=== PATIENT | female | born 1995 | race American Indian/Alaskan Native ===

== ENCOUNTER 2018-08-15 22:13 | Outpatient (CLI) | payer MEDICAID ==
[2018-08-15] MEDS ORDERED: LACTATED RINGERS 1,000 ML IV ONE (22:23)
[2018-08-15] MEDS ORDERED: TYLENOL PO ONE (23:02)
[2018-08-15] MEDS ORDERED: TYLENOL ONE (23:10)
[2018-08-15 23:57] LABS: Bacteria,Urine 2+ /HPF (Negative); Bilirubin,Urine NEG (Negative); Blood,Urine NEG (Negative); Color,Urine Yellow (Yellow); Mucus,Urine FEW /HPF; Protein,Urine <15 mg/dL mg/dL (Negative); Urobilinogen,Urine < 2.0 mg/dL (<2.0)
--- NOTE | 2018-08-15 23:57 | Ultrasound Report ---
PROCEDURE: US OB LIMITED TECHNIQUE: Real-time limited sonographic examination was performed for evaluation of well-bein g for each fetus with image documentation (1 or more fetuses). HISTORY: decreased movment COMPARISONS: None . FINDINGS: There is a single fetus in a vertex presentation. heart rate 1 55 bpm. The placenta is along th e posterior uterus. Amniotic fluid volume 12.3 cm. No further measurements are obtained. IMPRESSION: Single fetus vertex presentation. Amniotic fluid volume 12.3 cm. This document is electronically signed by Angella Kay DO., Aug 15 2018 11:55:22 PM ET
--- NOTE | 2018-08-15 23:58 | Ultrasound Report ---
PROCEDURE: US OB BPP WO NON-STRESS TECHNIQUE: Sonographic evaluation for breathing, movement, tone, and amniotic flui d volume was performed. HISTORY: decreased movement COMPARISONS: None . FINDINGS: FETUS Amniotic fluid volume Normal-score 2. At least one vertical pocket >2 cm or more in vertical axis . breathing: Normal-score 2 . movement: Normal-score 2 . tone: Normal-score 2 . Score: 8 of 8 . IMPRESSION: Normal biophysical profile . This document is electronically signed by Angella Kay DO., Aug 15 2018 11:55:55 PM ET
[2018-08-16] MEDS ORDERED: ROCEPHIN/NS 1 GM/50 ML 1 GM/50 ML BAG IV ONE (00:06)
[2018-08-16 00:35] VITALS: BP 114/77
== END 2018-08-16 01:05 | disposition home or self-care (01) ==
LOC: TRG 22:13
PROVIDERS: ATTEND Obstetrics & Gynecology
DX: O36.8130 Decreased fetal movements, third trimester, not applicable or unspecified (principal); O47.03 False labor before 37 completed weeks of gestation, third trimester; O26.893 Other specified pregnancy related conditions, third trimester; R10.9 Unspecified abdominal pain; Z3A.28 28 weeks gestation of pregnancy
CPT/HCPCS: 59025; 76815; 76819; 81001; 87086; 96360; 96365; J0696; J7120

== ENCOUNTER 2018-10-15 16:47 | Outpatient (CLI) | payer MEDICAID ==
[2018-10-15] MEDS ORDERED: LACTATED RINGERS 500 ML IV ONE (16:55)
[2018-10-15 17:14] VITALS: BP 116/81
[2018-10-15 17:25] LABS: Bacteria,Urine 4+ /HPF (Negative); Bilirubin,Urine NEG (Negative); Blood,Urine MOD (Negative); Color,Urine Yellow (Yellow); Mucus,Urine FEW /HPF; Urobilinogen,Urine < 2.0 mg/dL (<2.0)
== END 2018-10-15 18:12 | disposition home or self-care (01) ==
LOC: TRG 16:47
PROVIDERS: ATTEND Obstetrics & Gynecology
DX: O47.03 False labor before 37 completed weeks of gestation, third trimester (principal); Z3A.37 37 weeks gestation of pregnancy
CPT/HCPCS: 59025; 81001; 87086

== ENCOUNTER 2018-10-31 06:15 | Inpatient (IN) | payer MEDICAID ==
--- NOTE | 2018-10-31 10:15 | History and Physical Report ---
History of Present Illness Date of examination: 10/31/18 Date of admission: 10/31/18 09:38 History of present illness: Patient presented to labor and delivery with complaints of regular contractions. The patient patient's cervix changed from 3 cm TO 5 CM. MINUTE MANAGEMENT OF ACTIVE LABOR. Menstrual History Regularity: regular Duration: 4-5 LMP: 01/26/2018 LMP reliability: definite LMP character: normal test type: urine test Date: 05/18/2018 BC at conception: other EDC Calculations LMP: 11/02/2018 EDC Confirmation: 11/02/2018 Past History : 1 Term Births: 0 Premature Births: 0 Living Children: 0 Para: 0 Mult. Births: 0 Prev : 0 Aborta: 0 Elect. Ab: 0 Spont. Ab: 0 Ectopics: 0 Past Medical History: Negative Past Medical History Past Surgical History: Negative Past Surgical History Social History: Marital Status: Single Children: 0 Occupation: [employer] Risk Factors: Smoked Tobacco Use: Current every day smoker Cigars: Yes -- 1 per week Year started: 2017 Counseled to quit/cut down: yes Drug use: no HIV high-risk behavior: low risk Alcohol use: no Dietary Counseling: pn yes Past Medical History Surgery (Non-roofer gypsum): Negative Past Surgical History Abnormal PAP: negative Uterine Anomaly: negative Social Hx: Marital Status: Single Children: 0 Occupation: [employer] Infection History Hx of STD: none HIV Risk Eval: low risk Hepatitis B Risk Eval: low risk Personal hx. of genital herpes: no Genetic History Congenital Heart Defect: Mom: no Dad: no [place] Disease: Mom: no Dad: no Thalassemia Mom: no Dad: no Neural Tube Defect Mom: no Dad: no Down's Syndrome Mom: no Dad: no Lloyd-Sachs Mom: no Dad: no Sickle Cell Disease/Trait Mom: no Dad: no Hemophilia Mom: no Dad: no Muscular Dystrophy Mom: no Dad: no Cystic Fibrosis Mom: no Dad: no [place] Chorea Mom: no Dad: no Mental Retardation Mom: no Dad: no Fragile X Mom: no Dad: no Other Genetic/Chromosomal Disorder Mom: no Dad: no Child w/other defect Mom: no Dad: no Enviromental Exposures Xray Exposure: no Medication, drug, or alcohol use since LMP: no Chemical/Other Exposure: no Exposure to Cat Liter: no Active Medications (reviewed today): VITAMIN PLUS LOW IRON 27-1 MG ORAL TABLET ( VIT-FE FUMARATE-FA) 1 po q day as directed Current Allergies (reviewed today): No known allergies Laboratory Results Date/Time Past History - Obstetrical History : 1 Medications and Allergies Allergies Allergy/AdvReac Type Severity Reaction Status Date / Time No Known Allergies Allergy Verified 08/15/18 22:39 Home Medications Medication Instructions Recorded Confirmed Last Taken Type Vit-Fe Fumar-FA [ 1 tab PO QDAY 08/15/18 11/01/18 08/14/18 History Vitamin] Ibuprofen [Motrin 800 MG tab] 800 mg PO TID PRN #30 tablet 11/01/18 Unknown Rx Lidocain2.5%/Prilocai2.5% [Emla] 5 gm TP PRN #1 tube 11/01/18 Unknown Rx Docusate Sodium [Colace] 100 mg PO BID PRN #60 capsule 11/02/18 Unknown Rx Ferrous Sulfate [Feosol 325 MG tab] 325 mg PO BID #60 tablet 11/02/18 Unknown Rx - Vital Signs Vital signs: Vital Signs Pulse BP 116 H 109/66 10/31/18 07:10 10/31/18 07:10 Temp Pulse Resp BP Pulse Ox 114 H 127/68 10/31/18 09:41 10/31/18 09:41 - Physical Exam Breasts: Positive: deferred Cardiovascular: Regular rate Abdomen: Positive: normal appearance, soft Genitourinary (Female): Positive: perineal/vulvar lesions (small condyloma was seen around the fourchette) Vulva: both: condyloma Vagina: Positive: normal moisture Anus/Rectum: Positive: normal perianal skin Extremities: Positive: edema - Obstetrical FHR: category 1 Uterine Contraction Pattern: Regular Uterine Tone Measurement Phase: Resting Results Result Diagrams: 11/01/18 08:17 All other labs normal. Assessment and Plan - Patient Problems (1) Active labor at term Status: Acute Plan to address problem: We will admit and follow routine labor and delivery protocol. (2) Condyloma Status: Acute
[2018-10-31 10:35] LABS: Basophils % (Auto) 0.2 % (0.0-1.8); Hematocrit 38.1 % (30.3-42.9); Hemoglobin 12.3 gm/dl (10.1-14.3); Lymphocytes # (Auto) 0.8 K/mm3 (1.2-5.4); Lymphocytes % (Auto) 5.7 % (13.4-35.0); Mean Corpuscular HGB Conc 32 % (30-34); Mean Corpuscular Volume 80 fl (79-97); Monocytes # (Auto) 0.7 K/mm3 (0.0-0.8); Monocytes % (Auto) 4.5 % (0.0-7.3); Platelet Count 148 K/mm3 (140-440); Red Blood Count 4.79 M/mm3 (3.65-5.03); Red Cell Distribution Width 17.7 % (13.2-15.2)
[2018-10-31] MEDS ORDERED: LACTATED RINGERS 1,000 ML IV SCH ×2 (12:00→12:02)
[2018-10-31] MEDS ORDERED: PITOCin/NS 20 UNIT/1000ML DRIP 20 UNITS/1,000 ML BAG IV SCH (12:02)
[2018-10-31] MEDS ORDERED: BRETHINE IVP PRN (12:02)
[2018-10-31] MEDS ORDERED: PHENERGAN PO PRN ×2 (12:02→22:14)
[2018-10-31] MEDS ORDERED: STADOL IV PRN (12:02)
[2018-10-31] MEDS ORDERED: BRETHINE SUB-Q PRN (12:02)
[2018-10-31] MEDS ORDERED: ZOFRAN ONE (12:08)
[2018-10-31] MEDS ORDERED: ZOFRAN IV PRN (12:13)
[2018-10-31] MEDS ORDERED: XYLOCAINE 2% INFILTRATI ONE (13:00)
[2018-10-31] MEDS ORDERED: NARCAN 2 MG/2 ML IV PRN (13:40)
[2018-10-31] MEDS ORDERED: SUBLIMAZE ONE ×2 (13:42→17:46)
[2018-10-31] MEDS ORDERED: MARCAINE 0.25% INFILTRATI ONE (13:42)
[2018-10-31] MEDS ORDERED: fentaNYL-BUPIV 2 MCG/ML-0.125% 200 MCG/100 ML BAG EPIDURAL SCH (14:00)
--- NOTE | 2018-10-31 14:01 | Anesthesia Consultation ---
Anesthesia Consult and Med Hx Date of service: 10/31/18 - Airway Anesthetic Teeth Evaluation: Good ROM Head & Neck: Adequate Mental/Hyoid Distance: Adequate Mallampati Class: Class II Intubation Access Assessment: Good - Pulmonary Exam CTA: Yes - Cardiac Exam Cardiac Exam: RRR - Pre-Operative Health Status ASA Pre-Surgery Classification: ASA2, Emergency Proposed Anesthetic Plan: Epidural - Pulmonary Hx Asthma: No - Cardiovascular System Hx Hypertension: No - Central Nervous System Hx Seizures: No Hx Psychiatric Problems: No - Endocrine Hx Renal Disease: No Hx Hypothyroidism: No Hx Hyperthyroidism: No - Hematic Hx Anemia: Yes Hx Sickle Cell Disease: No - Other Systems Hx Alcohol Use: No
[2018-10-31] MEDS ORDERED: MINERAL OIL ONE ×4 (16:00→17:13)
[2018-10-31] MEDS ORDERED: MINERAL OIL PO PRN (17:14)
[2018-10-31] MEDS ORDERED: VERSED IV ONE (17:46)
[2018-10-31] MEDS ORDERED: DIPRIVAN 10 MG/ML IV ONE (17:46)
[2018-10-31] MEDS ORDERED: CYTOTEC ONE (17:59)
--- NOTE | 2018-10-31 18:35 | Procedure Note ---
OB Delivery Note - Delivery Date of Delivery: 10/31/18 Surgeon: KATELYN DONG Estimated blood loss: 1000cc - Vaginal Delivery presentation: vertex Delivery position: OA Intrapartum events: hemorrhage, uterine inversion Delivery induction: none Delivery monitor: external FHT, external uterine Route of delivery: Delivery placenta: spontaneous Episiotomy: none Delivery laceration: 1st degree Anesthesia: intravenous, epidural Delivery comments: Patient's placenta appeared to be spontaneously detach and approximately 10-12 minutes after delivery of the infant. The patient push with the placenta coming through the cervix and then the patient started experiencing severe pain on inspection of the placenta as a computer services was noted still attached to the fundus and patient had inverted uterus. I successfully detach the uterus from the fundus. Initially tried to correct the inversion but the patient was not adequately anesthetized. Anesthesia was called the patient was given anesthetic. I successfully manually corrected inversion replace and fundus to his normal position. Patient was given Pitocin and 800 g of Cytotec per rectum. Fundus became firm and her bleeding decreased significantly. The patient is being watched in labor and delivery to insure no hemorrhage - Infant B Infant Gender: Male
[2018-10-31] MEDS ORDERED: CYTOTEC PR ONE (19:00)
[2018-10-31 19:07] LABS: Hematocrit 31.2 % (30.3-42.9); Hemoglobin 10.2 gm/dl (10.1-14.3)
--- NOTE | 2018-10-31 19:56 | Anesthesia Day of Surgery ---
Anesthesia Day of Surgery - Day of Surgery Patient Examined: Yes Patient H&P Reviewed: Yes Patient is NPO: Yes
--- NOTE | 2018-10-31 20:23 | Post Anesthesia Evaluation ---
- Post Anesthesia Evaluation Patient Participated: Yes Airway Patent: Yes Stable Respiratory Function: Yes Nausea/Vomiting: No Temp > 96.8F: Yes Pain Manageable: Yes Adequeate Hydration: Yes Anesthesia Complications: No Block Receding Appropriately: Yes Patient on Ventilator: No
[2018-10-31] MEDS ORDERED: TYLENOL PO PRN (22:14)
[2018-10-31] MEDS ORDERED: BENADRYL PO PRN (22:14)
[2018-10-31] MEDS ORDERED: MILK OF MAGNESIA PO PRN (22:14)
[2018-10-31] MEDS ORDERED: LANSINOH TP PRN (22:14)
[2018-10-31] MEDS ORDERED: DULCOLAX PR PRN (22:14)
[2018-10-31] MEDS ORDERED: TUCKS PAD TP PRN (22:14)
[2018-10-31] MEDS ORDERED: SODIUM CHLORIDE FLUSH SYRINGE 10 ML IV NR (22:14)
[2018-10-31] MEDS ORDERED: PERCOCET 5/325 PO PRN (22:14)
[2018-10-31] MEDS: IBUPROFEN PO SCH (22:32)
[2018-10-31 22:54] LABS: Hematocrit 26.9 % (30.3-42.9)
[2018-11-01] MEDS: IBUPROFEN PO SCH ×5 (05:05→23:31)
--- NOTE | 2018-11-01 05:46 | Discharge Summary ---
Providers - Providers Date of Admission: 10/31/18 09:38 Date of discharge: 11/01/18 (pt ok with d/c if baby can go) Attending physician: KATELYN DONG 10/31/18 22:14 Consult to Drafter Apprentice [CONS] Routine Reason For Exam: assistance with , SNS Primary care physician: KATELYN DONG Hospitalization Reason for admission: active labor Delivery: Episiotomy: none Laceration: none Incision: normal Other procedures: none complications: none Discharge diagnosis: IUP at term delivered [place] baby: male Hospital course: uncomplicated vaginal delivery Pt resting No c/o voiced. VSS FF below umb Lochia small perineum intact H&H 12/16 drop r/t blood loss from delivery Pt is w/o dizziness, denies any difficulty walking. Doing well s/p vag delivery P: d/c today with instructions RTO 1 wk for circ and 4 wk for care. Condition at discharge: Good Disposition: DC-01 TO HOME OR SELFCARE - Discharge Diagnoses (1) Spontaneous vaginal delivery Status: Acute Comment: RTO 4 weeks PP care Plan - Provider Discharge Summary Activity: routine, no sex for 6 weeks, no heavy lifting 4 weeks, no strenuous exercise Diet: routine Instructions: routine Additional instructions: [] Smoking cessation referral if applicable(refer to patient education folder for contact #) [] Refer to [facility] Booklet Call your doctor immediately for: * Fever > 100.5 * Heavy vaginal bleeding ( >1 pad per hour) * Severe persistent headache * Shortness of breath * Reddened, hot, painful area to leg or breast * Drainage or odor from incision. * Keep incision clean and dry at all times and follow doctor's instructions regarding bathing/showering - Follow up plan Follow up: KATELYN DONG MD [Primary Care Provider] - 7 Days (Congratulations! Please call [phone] to schedule your visit in 4 weeks and your son's circumcision in 1 week. Bring EMLA cream with you to his visit. Do NOT use at home. Take Motrin/ibuprofen for cramping/pain. Call with concerns.)
[2018-11-01] MEDS ORDERED: BOOSTRIX IM ONE (06:00)
[2018-11-01] MEDS ORDERED: DEPO-PROVERA (CONTRACEPTION) IM ONE ×2 (06:35→11:00)
[2018-11-01 09:14] LABS: Hematocrit 24.3 % (30.3-42.9); Hemoglobin 7.8 gm/dl (10.1-14.3)
[2018-11-01] MEDS: SENOKOT S PO SCH ×2 (10:18→21:54)
[2018-11-01] MEDS: COLACE PO SCH ×2 (10:18→21:53)
[2018-11-01] MEDS: PRENATAL VITAMIN PO SCH (10:18)
[2018-11-01] MEDS: FEOSOL PO SCH (21:53)
[2018-11-02] MEDS: IBUPROFEN PO SCH ×2 (06:05→12:19)
--- NOTE | 2018-11-02 07:04 | Event Note ---
Date: 11/02/18 (pt in good spirits ready to go home) Pt d/c changed to today when H&H dropped to 7.8/24.3 Pt has not had any s/sx of anemia Ambulates w/o issue. RX done for motrin, colace, and po iron for d/c Pt received her DEPO yesterday. Encouraged rest, hydration, iron rich diet. Pt to call with any concerns.
[2018-11-02] MEDS: FEOSOL PO SCH (10:18)
[2018-11-02] MEDS: PRENATAL VITAMIN PO SCH (10:18)
[2018-11-02] MEDS: SENOKOT S PO SCH (10:19)
[2018-11-02] MEDS: COLACE PO SCH (10:19)
[2018-11-02 13:56] VITALS: BP 107/68
== END 2018-11-02 13:55 | disposition home or self-care (01) | DRG 774 ==
LOC: TRG 06:15 → LD 09:38 → OB 21:24
PROVIDERS: ADMIT Obstetrics & Gynecology; ATTEND Obstetrics & Gynecology
PROC: 0HQ9XZZ Repair Perineum Skin, External Approach (ICD-10-PCS; principal; 2018-10-31)
PROC: 10E0XZZ Delivery of Products of Conception, External Approach (ICD-10-PCS; 2018-10-31)
PROC: 3E0R3BZ Introduction of Anesthetic Agent into Spinal Canal, Percutaneous Approach (ICD-10-PCS; 2018-10-31)
PROC: 00HU33Z Insertion of Infusion Device into Spinal Canal, Percutaneous Approach (ICD-10-PCS; 2018-10-31)
PROC: 3E0234Z Introduction of Serum, Toxoid and Vaccine into Muscle, Percutaneous Approach (ICD-10-PCS; 2018-11-01)
DX: O98.32 Other infections with a predominantly sexual mode of transmission complicating childbirth (principal); A63.0 Anogenital (venereal) warts; O70.0 First degree perineal laceration during delivery; O72.1 Other immediate postpartum hemorrhage; Z37.0 Single live birth; Z23 Encounter for immunization; Z79.899 Other long term (current) drug therapy; Z3A.39 39 weeks gestation of pregnancy
CPT/HCPCS: 36415; 85014; 85018; 85025; 86592; 86762; 86850; 86900; 86901; 90471; 90715; G0378; J0595; J1050; J2250; J2405; J2590; J2704; J3010; J7120